=== PATIENT | female | born 1970 | race Caucasian/White ===

== ENCOUNTER 2020-07-22 17:46 | Emergency (ER) | payer MEDICARE, OTHER ==
[~2020-07-22 17:46] MED LIST: ALLEGRA ALLERG180 MG PO; AMITIZA8 MCG PO; AZO STANDARD95 MG PO; BACTRIM DS TAB1 EACH PO; BONIVA; BREO ELLIPTA 11 EACH INH; CARAFATE1 GM PO; CLARITIN10 M2 PO; COUMADIN2.5 MG PO; CRESTOR20 MG PO; CRESTOR5 MG PO; CYANOCOBAL1000 MCG/1 IM; DEXTROSE 5% IV; DIFLUCAN150 MG PO; DULCOLAX5 MG PO; DULERA 100 MCG8.8 GM INH; DULERA 200 MCG8.8 GM INH; DUONEB 2.5-0.5M1 AMP INH; DURAGESIC TOP; ELMIRON100 MG PO; EPINEPHRIN0.3 MG/0.3 SC; FLEXERIL10 MG PO; FLONASE ALLER15.8 ML; GABAPENTIN 100100 MG PO; HCTZ12.5 MG PO; INFED100 MG/2 M IV; INVANZ 1GM1 GM/VIAL IV; KEFLEX500 MG PO; KEPPRA100 MG/11 IV; KEPPRA500 MG/5 M IV; KLONOPIN1 MG PO; LIPITOR40 MG PO; LISINOPRIL 20MG20 MG PO; LOPRESSOR25 MG PO; MAG-OXIDE 400M400 MG PO; MARINOL5 MG PO; MECLIZINE 25MG25 MG PO; METFORMIN HCL500 MG PO; NEOSPORIN OP; NEURONTIN400 MG PO; NORCO 5-325 TA1 EACH PO; NYSTATIN SUSP1 ML/ML SSP; PHENERGAN50 MG/1 M1 IV; PRINIVIL10 MG PO; PRINIVIL20 MG PO; PROCTOZONE-HC 230 GM TOP; PROTONIX 40MG T40 MG PO; ROBAXIN500 MG PO; SEROQUEL 100MG100 MG PO; SEROQUEL400 MG PO; SODIUM CHLORIDE 0.9% IV; SPIRIVA18 MCG INH; SYNTHROID100 MCG PO; SYNTHROID88 MCG PO; TOPAMAX200 MG PO; TRANSDERM-SCOP1 EACH TD; TRAZODONE HCL300 MG PO; TYLENOL650 MG PR; VICODIN 10/3251 EACH PO; VITAMIN B-121000 MC1 IV; WELLBUTRIN XL150 MG PO; ZOFRAN IV; ZOFRAN4 MG PO; [UNRECOGNIZED DRUG - OTHER] OP
[2020-07-22] MEDS ORDERED: TESSALON PERLE100 M1 PO (22:12)
== END 2020-07-22 22:29 | disposition home or self-care (01) ==
LOC: FER 17:46
DX: U07.1 COVID-19 (principal); Z86.73 Personal history of transient ischemic attack (TIA), and cerebral infarction without residual deficits
CPT/HCPCS: J1170; J2405; J7050; M0239

== ENCOUNTER 2020-10-10 12:17 | Emergency (ER) | payer MEDICARE, OTHER ==
[~2020-10-10 12:17] MED LIST changes: +TESSALON PERLE100 M1 PO
[2020-10-10 15:08] LABS: EOSINOPHIL 2.9 % (0-5); HCT 34.6 % (37.0-47.0); HGB 10.9 g/dl (12.5-16.0); LYMPHOCYTE 34.5 % (15-48); MCH 25.9 pg (25.0-31.0); MCHC 31.5 g/dL (32.0-36.0); MCV 82.2 fL (78.0-100.0); MPV 12.9 fL (6.0-9.5); NEUTROPHIL 52.4 % (41-80); NRBC 0; PLT 128 K/uL (150-400); RBC 4.21 M/uL (4.20-5.40); RDW 16.7 % (11.5-14.0); WBC 5.1 K/uL (4.0-10.5)
[2020-10-10 15:24] LABS: BILIRUBIN NEGATIVE (NEGATIVE); BLOOD 1+ Ery/uL (NEGATIVE); COLOR YELLOW (YELLOW); GLUCOSE (U) NORMAL (NORMAL); LEUKOCYTES 1+ Leu/uL (NEGATIVE); NITRITE NEGATIVE (NEGATIVE); PROTEIN NEGATIVE (NEGATIVE); SPECIFIC GRAVITY >=1.030 (1.001-1.030); UROBILINOGEN 0.2 mg/dL (0.2-1.0)
[2020-10-10 15:27] LABS: CLARITY HAZY (CLEAR)
[2020-10-10 15:38] LABS: BACTERIA 2+; URINARY WBC 20-50
[2020-10-10 16:07] LABS: ALBUMIN 3.2 g/dL (3.4-5.0); ALKALINE PHOSHATASE 69 U/L (46-116); ALT 19 U/L (14-59); AST 17 U/L (15-37); BILIRUBIN - TOTAL 0.2 mg/dL (0.2-1.0); BUN 12 mg/dL (7-18); BUN/CREAT RATIO (CALC) 13.8 RATIO; CHLORIDE 105 mmol/L (98-107); CO2 (BICARBONATE) 26 mmol/L (21-32); CREATININE 0.87 mg/dL (0.51-0.95); GLOBULIN (CALCULATION) 5.3 g/dL; GLUCOSE 96 mg/dL (74-106); POTASSIUM 3.2 mmol/L (3.5-5.1); TOTAL PROTEIN 8.5 g/dL (6.4-8.2)
[2020-10-10 16:08] LABS: LIPASE <10 U/L (73-393)
[2020-10-10] MEDS ORDERED: ROCEPHIN 1GM1 GM IM/IV (18:00)
== END 2020-10-10 19:10 | disposition home or self-care (01) ==
LOC: FER 12:17
PROVIDERS: Nurse Practitioner Family
DX: N39.0 Urinary tract infection, site not specified (principal); I11.0 Hypertensive heart disease with heart failure; I50.9 Heart failure, unspecified; J44.9 Chronic obstructive pulmonary disease, unspecified; Z91.041 Radiographic dye allergy status; Z91.040 Latex allergy status; Z91.048 Other nonmedicinal substance allergy status
CPT/HCPCS: 36415; 80053; 81001; 83690; 85025; 87088; J0696; J1170

== ENCOUNTER 2021-02-06 14:08 | Emergency (ER) | payer MEDICARE, OTHER ==
[~2021-02-06 14:08] MED LIST changes: +ROCEPHIN 1GM1 GM IM/IV
[2021-02-06 17:15] LABS: BASOPHIL 0.7 % (0-2); HCT 36.3 % (37.0-47.0); HGB 11.5 g/dl (12.5-16.0); LYMPHOCYTE 35.6 % (15-48); MCHC 31.7 g/dL (32.0-36.0); MCV 82.1 fL (78.0-100.0); MONOCYTE 11.6 % (0-12); MPV 11.9 fL (6.0-9.5); NEUTROPHIL 49.9 % (41-80); NRBC 0; PLT 158 K/uL (150-400); RBC 4.42 M/uL (4.20-5.40); WBC 5.5 K/uL (4.0-10.5)
[2021-02-06 17:22] LABS: ALBUMIN 3.2 g/dL (3.4-5.0); BILIRUBIN - TOTAL 0.4 mg/dL (0.2-1.0); BUN/CREAT RATIO (CALC) 15.6 RATIO; CREATININE 0.77 mg/dL (0.51-0.95); GLOBULIN (CALCULATION) 4.5 g/dL; POTASSIUM 3.1 mmol/L (3.5-5.1); TOTAL PROTEIN 7.7 g/dL (6.4-8.2)
[2021-02-06 17:32] LABS: LACTIC ACID 0.5 mmol/L (0.4-1.9)
[2021-02-06 18:08] LABS: BILIRUBIN 2+ mg/dL (NEGATIVE); BLOOD 2+ Ery/uL (NEGATIVE); CLARITY CLEAR (CLEAR); COLOR YELLOW (YELLOW); GLUCOSE (U) NORMAL (NORMAL); LEUKOCYTES 1+ Leu/uL (NEGATIVE); NITRITE NEGATIVE (NEGATIVE); PROTEIN NEGATIVE (NEGATIVE); SPECIFIC GRAVITY >=1.030 (1.001-1.030)
[2021-02-06 18:34] LABS: BACTERIA 3+
[2021-02-06] MEDS ORDERED: MACROBID100 MG PO (18:34)
[2021-02-06 18:35] LABS: AMORPHOUS URATES CRYSTALS MODERATE
== END 2021-02-06 18:42 | disposition home or self-care (01) ==
LOC: FER 14:08
PROVIDERS: Emergency Medicine
DX: N39.0 Urinary tract infection, site not specified (principal); K56.600 Partial intestinal obstruction, unspecified as to cause; Z20.822 Contact with and (suspected) exposure to COVID-19; Z90.710 Acquired absence of both cervix and uterus
CPT/HCPCS: 36415; 80053; 81001; 83605; 83690; 84145; 85025; 87040; 87088; U0002